=== PATIENT | male | born 1990 | race Caucasian/White ===

== ENCOUNTER 2017-06-10 07:19 | Emergency (ER) | payer SELFPAY ==
[~2017-06-10] VITALS: Ht 182.9 cm; Wt 78.0 kg
[2017-06-10 07:22] VITALS: BP 128/70; PULSE 91; RESP 16; TEMP 98.5; O2SAT 97
--- NOTE | 2017-06-10 08:07 | PD ---
HPI Chief Complaint: GI Complaint Time Seen by Provider: 07:45 Travel History International Travel<30 days: No Contact w/Intl Traveler<30days: No Traveled to known affect area: No History of Present Illness HPI 26yo M with no significant PMH presents to the ED with c/o diarrhea for 1 year. Said it is nonbloody and denies any fever, chest pain, sob, n/v, abdominal pain, focal weakness or numbness. Pt said he has not seen a worm in his stool or out of his anus but feel that it is a possibility. Denies any traveling or antibiotic use. Said he went to other hospitals and they thought he was exaggerating. Pt becomes upset at questions such as when asked if he has normal appetite and is eating and drinking normally, he would answer that "of course I'm eating fine, I have to eat to survive". Denies any thoughts of hurting himself or others and said it was "a stupid question". PFSH Past Medical History Medical History: Denies Significant Hx Diminished Hearing: No ?: Not Past Surgical History Surgical History: No Previous Surgery Social History Alcohol Use: No Tobacco Use: Yes Substance Use: No (marijuana) Allergies-Medications (Allergen,Severity, Reaction): Coded Allergies: penicillin G (Unverified Allergy, Intermediate, 06/10/17) Reported Meds & Prescriptions Reported Meds & Active Scripts Active No Active Prescriptions or Reported Medications Review of Systems Except as stated in HPI: all other systems reviewed are Neg Physical Exam Narrative GENERAL: 26yo M not in distress. SKIN: Focused skin assessment warm/dry. HEAD: Atraumatic. Normocephalic. EYES: Pupils equal and round. No scleral icterus. No injection or drainage. CARDIOVASCULAR: Regular rate and rhythm. No murmur appreciated. RESPIRATORY: No accessory muscle use. Clear to auscultation. Breath sounds equal bilaterally. GASTROINTESTINAL: Abdomen soft, non-tender, nondistended. No rebound tenderness or guarding. RECTAL: Refused. MUSCULOSKELETAL: No obvious deformities. No clubbing. No cyanosis. No edema. NEUROLOGICAL: Awake and alert. No obvious cranial nerve deficits. Motor grossly within normal limits. Normal speech. Data Data Last Documented VS Vital Signs Date Time Temp Pulse Resp B/P (MAP) Pulse Ox O2 Delivery O2 Flow Rate FiO2 06/10/17 10:45 06/10/17 07:22 98.5 91 16 97 Room Air Orders Orders Stool Ova And Parasite Screen (06/10/17 07:53) Ed Discharge Order (06/10/17 10:25) Stool Ova And Parasite Screen (06/10/17 10:26) MDM Medical Decision Making Medical Screen Exam Complete: Yes Emergency Medical Condition: Yes Differential Diagnosis Parasite vs. IBS vs. infectious diarrhea vs. chronic diarrhea secondary to diet or malabsorption Narrative Course 26yo M with c/o nonbloody diarrhea for 1 year. Pt is well appearing and has no other symptoms. Said sometimes he does have itching in the anus but refused exam. Pt last had episode of diarrhea last night. Pt is eating and drinking normally with no nausea, vomiting or abdominal pain. Vital signs normal. Pt thinks it can be tape worm but has never seen anything resembling a worm in his stool or from his anus. Asked pt to give stool sample and we can check for parasite or ova. Nontoxic appearing and can follow up as outpatient. Stool sample of soft dark brown stool that is nonbloody. Return precautions given. Diagnosis Primary Impression: Diarrhea Qualified Codes: R19.7 - Diarrhea, unspecified Patient Instructions: General Instructions Departure Forms: Tests/Procedures Additional Instructions: Please follow up with [facility] in 3-7 days. Return to the ED if symptoms worsen. Med/Other Pt SpecificInfo: No Change to Meds Scripts No Active Prescriptions or Reported Meds Disposition: 01 DISCHARGE HOME Condition: Stable Ana Mai DO Jun 10, 2017 08:07
== END 2017-06-10 10:47 | disposition home or self-care (01) ==
LOC: NEPC 07:19
DX: R19.7 Diarrhea, unspecified (principal); Z72.0 Tobacco use
CPT/HCPCS: 87328; 87329; 99283